=== PATIENT | female | born 1965 | race Caucasian/White ===

== ENCOUNTER 2019-12-28 10:49 | Day surgery (SDC) | payer BC ==
[~2019-12-28 10:49] MED LIST: Buffered Lidocaine 1% SYRIN* 1 ML/SYRINGE INTRADERM ONE; Lactated Ringers 1000 ML Bag* 1,000 ML IV SCH; Sodium Citrate/Citric Acid* 15 ML UDC PO ONE
[2019-12-28] MEDS ORDERED: Buffered Lidocaine 1% SYRIN* 1 ML/SYRINGE INTRADERM ONE (11:34)
[2019-12-28] MEDS ORDERED: Midazolam* 1 MG/ML 5 ML VIAL (5 MG) ONE (13:29)
[2019-12-28] MEDS ORDERED: KETAMINE HCL* 50 MG/ML 10 ML VIAL ONE (14:03)
[2019-12-28] MEDS ORDERED: Propofol* 10 MG/ML 20 ML BTL ONE (14:25)
[2019-12-28] MEDS ORDERED: Glycopyrrolate IV* 0.2 MG/ML 1 ML VIAL ONE (14:25)
[2019-12-28] MEDS ORDERED: Lidocaine 2% PF * 5 ML VIAL ONE (14:25)
[2019-12-28] MEDS ORDERED: Ondansetron INJ* 2 MG/ML VIAL ONE (14:25)
[2019-12-28] MEDS ORDERED: Acetaminophen TAB* 325 MG PO PRN (14:37)
[2019-12-28 15:11] VITALS: BP 124/64
--- NOTE | 2019-12-29 15:59 | PRO ---
DATE: 12/28/19 [facility] REFERRING PHYSICIAN: Dr. Doreen Meraz. * PROCEDURE: Upper gastrointestinal endoscopy and CLOtest and antral biopsy for routine histology. INDICATION: This is a 54-year-old woman comes in for pre-bariatric assessment. She currently takes a baby aspirin and denies NSAIDs. She denies acid ingestion or heartburn. Informed consent was obtained with an opportunity for questions and special concerns. ENDOSCOPIST: Dr. Schaeffer. MEDICATIONS: Anesthesia per Dr. Moran. FINDINGS: She is a morbidly obese, middle-aged woman, in no overt distress. She was positioned left side down and moderate sedation induced by the anesthesiologist. EGD: Larynx - symmetric, limited views. Esophagus - easily entered and the mucosa is normal at the upper sphincter and in the upper and mid esophagus. There are some small erosions in the lower esophagus and then a small to medium hiatal hernia with an inflammatory nodule at 3 o'clock orientation. During the withdrawal phase, the nodule was biopsied. There were no Gordon's changes, and the erosions were fairly superficial. There was no fundic prolapse. Stomach - the fundus and upper body appear normal. In the distal body and antrum, there were numerous small erosions. A CLOtest was taken. 2 biopsies were taken. Duodenum - the pylorus, bulb, and second through fourth portions appeared normal. IMPRESSION: 1. Fcfy-qq-qvhippxm antral gastritis - likely related to the aspirin. She denies NSAID use. 2. Mlzwq-og-svgicy hiatal hernia. Mild distal erosive gastroesophageal reflux disease. 4. EG junction inflammatory nodule - biopsy pending. 5. Bariatric surgery status - she has a significant reflux pre-disposition with underreported symptoms. Addendum: Clotest negative - EG junction Bx benign squamous mucosa [id number]/[facility] #: [id number] [facility]
== END 2019-12-28 15:30 | disposition home or self-care (01) ==
LOC: OR 10:49
PROVIDERS: ATTEND Internal Medicine Gastroenterology
DX: Z01.818 Encounter for other preprocedural examination (principal); E66.9 Obesity, unspecified; Z68.43 Body mass index [BMI] 50.0-59.9, adult; K29.60 Other gastritis without bleeding; K44.9 Diaphragmatic hernia without obstruction or gangrene; K21.0 Gastro-esophageal reflux disease with esophagitis; G47.33 Obstructive sleep apnea (adult) (pediatric); K76.0 Fatty (change of) liver, not elsewhere classified; E03.9 Hypothyroidism, unspecified; E11.8 Type 2 diabetes mellitus with unspecified complications; I10 Essential (primary) hypertension; I08.0 Rheumatic disorders of both mitral and aortic valves; I71.2 Thoracic aortic aneurysm, without rupture; Z87.891 Personal history of nicotine dependence
CPT/HCPCS: 87077; 88305; J2250; J2405; J2704

== ENCOUNTER 2020-01-22 05:44 | Emergency (ER) | payer BC ==
--- OUTSIDE RECORDS SUMMARY | 2020-01-22 05:51 | XMS REPORT ---
:1965 Author Organization [facility] Care Team Providers Name Role Phone Isabelle Stewart Primary Care Physician Unavailable Allergies, Adverse Reactions, Alerts Allergy Code CodeSystem Reaction Severity Criticality Status Start Substance Date Moderate Medications Medication Medication Medication Start Stop Route Dose Status Fill Code CodeSystem Date Date Instructions aripiprazole 434646 RxNorm 2019- oral 10 mg active for 90 7-22 10-20 tablet day(s) venlafaxine 367347 RxNorm 2019- oral 225 mg completed for 90 1-24 07-15 tablet day(s) extended release 24hr aripiprazole 442415 RxNorm 2018- oral 10 mg completed for 30 3-26 07-21 tablet day(s) gabapentin 844535 RxNorm 2017-11 oral 100 mg active for 15 0-18 capsule day(s) venlafaxine 653195 RxNorm 2019- oral 225 mg 1 active Take 1 tablet 7-22 10-20 tablet once a day extended for 90 day(s) release 24hr once a day Problems Problem Name Code CodeSystem Alternate Alternate Start End Status Narrative Code CodeSystem Date Date Post-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 SNOMED-CT Active ic stress 4-10 disorder, unspecified Recurrent 72321933 SNOMED-CT Active depressive 3-22 disorder, current episode moderate Relevant diagnostic tests/laboratory data Narrative No Information Procedures Procedure Code CodeSystem Target Date of Status Service Device Device Device Name Site Procedure Delivery Code Name UID Location Office or [id number] SNOMED-CT () 2019-05-18 complete Mental other 7 d Health- outpatient [place] visit for [address] [place], management [place], of an [place], established [id number] patient, [id number] which requires at least 2 of these 3 walker components: An expanded problem focused history; An expanded problem focused examination; Medical decision making of [facility] Psychotherap [id number] SNOMED-CT () 2019-08-23 complete Mental y, 45 04 d Health- minutes with [place] patient [address], [id number] [id number] Psychotherap [id number] SNOMED-CT () 2019-06-29 complete Mental y, 45 04 d Health- minutes with [place] patient [address], [id number] [phone] Office or [id number] SNOMED-CT () 2019-07-23 complete Mental other 7 d Health- outpatient [place] visit for [address], established [id number] patient, [phone] which requires at least 2 of these 3 walker components: An expanded problem focused history; An expanded problem focused examination; Medical decision making of [facility] Psychotherap [id number] SNOMED-CT () 2019-05-21 complete Mental y, 45 04 d Health- minutes with [place] patient [address], [id number] [phone] Psychotherap [id number] SNOMED-CT () 2019-11-06 complete Mental y, 45 04 d Health- minutes with [place] patient [address], [id number] [phone] Psychotherap [id number] SNOMED-CT () 2019-03-29 complete Mental y, 45 04 d Health- minutes with [place] patient [address], [id number] [id number] Office or [id number] SNOMED-CT () 2019-11-30 complete Mental other 6 d Health- outpatient [place] visit for [address], [facility] [id number] patient, [phone] which requires at least 2 of these 3 walker components: A problem focused history; A problem focused examination; [place] medical decision making. Counselin Office or [id number] SNOMED-CT () 2019-09-28 complete Mental other 6 d Health- outpatient [place] visit for [address], established [id number] patient, [phone] which requires at least 2 of these 3 walker components: A problem focused history; A problem focused examination; [place] medical decision making. Counselin SNOMED-CT () 2019-02-26 complete Mental d Health- [address], [id number] [id number] Psychotherap [id number] SNOMED-CT () 2019-03-09 complete Mental y, 45 04 d Health- minutes with [place] patient [address], [id number] [phone] Office or [id number] SNOMED-CT () 2019-04-04 complete Mental other 7 d Health- outpatient [place] visit for [address], [facility], of an [place], established [id number] patient, [phone] which requires at least 2 of these 3 walker components: An expanded problem focused history; An expanded problem focused examination; Medical decision making of [place] Psychotherap [id number] SNOMED-CT () 2019-08-09 complete Mental y, 45 04 d Health- minutes with [place] patient [address], [id number] [phone] Psychotherap [id number] SNOMED-CT () 2019-09-06 complete Mental y, 45 04 d Health- minutes with [place] patient [address], [id number] [phone] Psychotherap [id number] SNOMED-CT () 2019-12-19 complete Mental y, 45 04 d Health- minutes with [place] patient [address], [id number] [id number] Psychotherap [id number] SNOMED-CT () 2019-10-01 complete Mental y, 45 04 d Health- minutes with [place] patient [address], [id number] [phone] Psychotherap [id number] SNOMED-CT () 2019-12-05 complete Mental y, 45 04 d Health- minutes with [place] patient [address], [id number] [phone] Encounters/Encounter Diagnoses Encounter Name Encounter Diagnosis Diagnosis Diagnosis Date of Service Code Code Name CodeSystem Diagnosis Delivery Location Psychotherapy - [id number] Recurrent SNOMED-CT 2019-12-19 Behavioral Individual 30 depressive Health min disorder, Clinic [address] [place] [address], [id number] Vital Signs No Information Social History Element Description Description Start End Code CodeSystem AdditionalInfo Date Date SexAssignedAtBirth Female F AdministrativeGender 08-13 Hospital Discharge Instructions Reason For Referral Medical Equipment FDA Assessments
--- OUTSIDE RECORDS SUMMARY | 2020-01-22 05:51 | XMS REPORT ---
:1965 Author Organization [facility] Care Team Providers Name Role Phone Isabelle Stewart Primary Care Physician Unavailable Allergies, Adverse Reactions, Alerts Allergy Code CodeSystem Reaction Severity Criticality Status Start Substance Date Moderate Medications Medication Medication Medication Start Stop Route Dose Status Fill Code CodeSystem Date Date Instructions aripiprazole 639021 RxNorm 2019- oral 10 mg active for 90 7-22 10-20 tablet day(s) aripiprazole 582979 RxNorm 2019- oral 10 mg completed for 30 3-26 07-21 tablet day(s) gabapentin 200828 RxNorm 2017-11 oral 100 mg active for 15 0-18 capsule day(s) venlafaxine 070507 RxNorm 2019- oral 225 mg completed for 90 1-24 07-15 tablet day(s) extended release 24hr venlafaxine 053888 RxNorm 2019- oral 225 mg 1 active Take 1 tablet 7-22 10-20 tablet once a day extended for 90 day(s) release 24hr once a day Problems Problem Name Code CodeSystem Alternate Alternate Start End Status Narrative Code CodeSystem Date Date Post-traumat 37139806 SNOMED-CT Active ic stress 4-10 disorder, unspecified Recurrent 38908698 SNOMED-CT Active depressive 3-22 disorder, current episode moderate Relevant diagnostic tests/laboratory data Narrative No Information Procedures Procedure Code CodeSystem Target Date of Status Service Device Device Device Name Site Procedure Delivery Code Name UID Location Psychotherap [id number] SNOMED-CT () 2019-03-09 complete Mental y, 45 04 d Health- minutes with [address], [id number] [phone] Psychotherap [id number] SNOMED-CT () 2019-03-29 complete Mental y, 45 04 d Health- minutes with [address], [id number] Psychotherap [id number] SNOMED-CT () 2019-08-09 complete Mental y, 45 04 d Health- minutes with [place] patient [address], [id number] [phone] Psychotherap [id number] SNOMED-CT () 2019-08-23 complete Mental y, 45 04 d Health- minutes with [place] patient [address], [id number] [phone] Psychotherap 532781 SNOMED-CT () 2019-09-06 complete Mental y, 45 04 d Health- minutes with [place] patient [address], [id number] [phone] Psychotherap [id number] SNOMED-CT () 2019-10-01 complete Mental y, 45 04 d Health- minutes with [place] patient [address], [id number] [phone] Psychotherap 520442 SNOMED-CT () 2019-05-21 complete Mental y, 45 04 d Health- minutes with [place] patient [address], [id number] [phone] Psychotherap 368105 SNOMED-CT () 2019-06-29 complete Mental y, 45 04 d Health- minutes with [place] patient [address], [id number] [id number] Psychotherap 800894 SNOMED-CT () 2019-11-06 complete Mental y, 45 04 d Health- minutes with [place] patient [address], [id number] [phone] Office or [id number] SNOMED-CT () 2019-07-23 complete Mental other 7 d Health- outpatient [place] visit for [address], [facility], established [id number] patient, [phone] which requires at least 2 of these 3 walker components: An expanded problem focused history; An expanded problem focused examination; Medical decision making of [place] Office or 218502 SNOMED-CT () 2019-04-04 complete Mental other 7 d Health- outpatient [place] visit for [address], established [id number] patient, [phone] which requires at least 2 of these 3 walker components: An expanded problem focused history; An expanded problem focused examination; Medical decision making of [facility] Office or 977131 SNOMED-CT () 2019-05-18 complete Mental other 7 d Health- outpatient [place] visit for [address], established [id number] patient, [phone] which requires at least 2 of these 3 walker components: An expanded problem focused history; An expanded problem focused examination; Medical decision making of [facility] or [id number] SNOMED-CT () 2019-09-28 complete Mental other 6 d Health- outpatient [place] visit for [address], [facility] [id number] patient, [phone] which requires at least 2 of these 3 walker components: A problem focused history; A problem focused examination; [place] medical decision making. Counselin Office or [id number] SNOMED-CT () 2019-11-30 complete Mental other 6 d Health- outpatient [place] visit for [address], [facility] [phone] patient, [phone] which requires at least 2 of these 3 walker components: A problem focused history; A problem focused examination; [place] medical decision making. Counselin SNOMED-CT () 2019-02-26 complete Mental d Health- [place], [id number] [phone] Encounters/Encounter Diagnoses Encounter Name Encounter Diagnosis Diagnosis Diagnosis Date of Service Code Code Name CodeSystem Diagnosis Delivery Location - 10758 [id number] Recurrent SNOMED-CT 2019-11-30 Behavioral Established depressive Health patient 10 disorder, Clinic [address] [facility], [place], [place], [id number] Vital Signs No Information Social History Element Description Description Start End Code CodeSystem AdditionalInfo Date Date SexAssignedAtBirth Female 1965-0 F AdministrativeGender 9-16 Hospital Discharge Instructions Reason For Referral Medical Equipment FDA Assessments
[2020-01-22] MEDS ORDERED: Albuterol/Ipratropium NEB.SOL* Albuterol 2.5 MG/Ipratropium 0.5 MG 3 ML INH ONE ×2 (06:10→07:22)
--- NOTE | 2020-01-22 06:13 | ED ---
Respiratory - HPI Summary HPI Summary: Patient is a 54-year-old female who presents emergency department for productive cough, wheeze and chest pressure times one week. Patient notes history of asthma, obesity, CHF, thoracic aneurysm, HTN. Patient notes she's been using an albuterol inhaler at home without improvement. Symptoms are moderate in severity. No current modifying factors. - History of Current Complaint Chief Complaint: EDUpperRespComplaint Stated Complaint: COUGH PER PT Time Seen by Provider: 01/22/20 05:58 Hx Obtained From: Patient Pain Intensity: 5 - Allergy/Home Medications Allergies/Adverse Reactions: Allergies Allergy/AdvReac Type Severity Reaction Status Date / Time Latex, Natural Rubber Allergy Intermediate Rash And Verified 01/22/20 05:47 Itching Sulfa (Sulfonamide Allergy Intermediate Difficulty Verified 01/22/20 05:47 Antibiotics) Breathing nickel Allergy Mild Rash Verified 01/22/20 05:47 peanut Allergy Mild Itching Verified 01/22/20 05:47 banana Allergy See Comment Verified 01/22/20 05:47 Egg Derived Allergy See Comment Verified 01/22/20 05:47 Home Medications: Home Medications Potassium Chlor TAB* [Klor-Con M20 ER TAB*] 20 meq PO DAILY 01/10/13 [History Confirmed 01/22/20] Spironolactone [Aldactone] 25 mg PO DAILY 03/29/15 [History Confirmed 01/22/20] ARIPiprazole TAB* [Abilify TAB*] 10 mg PO DAILY 11/14/19 [History Confirmed ] Aspirin 81 mg CHEW TAB* [Aspirin Low Dose TAB*] 81 mg PO DAILY 11/14/19 [ History Confirmed 01/22/20] Fexofenadine (NF) [Jenna 180 (NF)] 180 mg PO DAILY PRN 11/14/19 [History Confirmed 01/22/20] Gabapentin CAP(*) [Neurontin 100 mg CAP(*)] 100 - 200 mg PO TID PRN 11/14/19 [ History Confirmed 01/22/20] Levothyroxine TAB* [Synthroid TAB*] 50 mcg PO DAILY 11/14/19 [History Confirmed 01/22/20] Mometasone NASAL (NF) [Nasonex (NF)] 50 mcg BOTH NARES DAILY PRN 11/14/19 [ History Confirmed 01/22/20] Venlafaxine EXT RELEASE CAP* [Effexor Xr CAP*] 75 mg PO DAILY 11/14/19 [History Confirmed 01/22/20] Acetaminophen [Tylenol Extra Strength] 1,000 mg PO TID PRN 01/22/20 [History Confirmed 01/22/20] Albuterol/Ipratropium NEB.DUNCAN* [Duoneb (Albuterol 2.5 MG/Ipratropium 0.5 MG)] 1 neb INH Q6H PRN #30 neb.duncan 01/22/20 [Rx] DOXYcycline CAP(*) [DOXYcycline 100MG CAP(*)] 100 mg PO BID #20 cap 01/22/20 [Rx ] Metoprolol Succinate [Toprol Xl] 25 mg PO BID 01/22/20 [History Confirmed ] Venlafaxine ER (NF) [Effexor ER (NF)] 150 mg PO DAILY 01/22/20 [History Confirmed 01/22/20] predniSONE 50 mg TAB [Deltasone 50 mg TAB] 50 mg PO DAILY #4 tab 01/22/20 [Rx] PMH/Surg Hx/FS Hx/Imm Hx Previously Healthy: Yes Endocrine/Hematology History: Reports: Hx Thyroid Disease - hypothyroidism, Hx Anemia - 30 years ago Denies: Hx Bone Marrow Disease, Hx Diabetes, Hx Sickle Cell Disease Cardiovascular History: Reports: Hx Angina, Hx Hypertension, Hx Valvular Heart Disease - bicuspid aortic vavle (mild-mod), Other Cardiovascular Problems/ Disorders - THORACIC AORTIC ANUERISM Denies: Hx Cardiomegaly, Hx Congestive Heart Failure, Hx Coronary Artery Disease, Hx Pacemaker/ICD, Hx Peripheral Vascular Disease, Hx Rheumatic Fever Respiratory History: Reports: Hx Asthma, Hx Seasonal Allergies - multiple, Hx Sleep Apnea - can't tolerate cpap, Other Respiratory Problems/Disorders - age 8 pulmonic stenosis- valve valvotomy Denies: Hx Chronic Obstructive Pulmonary Disease (COPD), Hx Pulmonary Edema, Hx Pulmonary Embolism GI History: Reports: Hx Gall Bladder Disease - s/p lap jose, Hx Gastroesophageal Reflux Disease, Hx Hiatal Hernia, Hx Irritable Bowel Denies: Hx Cirrhosis, Hx Crohn's Disease, Hx Jaundice, Hx Ulcer Comment Only: Other GI Disorders - ibs History: Denies: Hx Kidney Infection, Hx Kidney Stones, Other Problems/Disorders Musculoskeletal History: Reports: Hx Arthritis - osteoarthritis, Hx Fibromyalgia , Hx Orthopedic Injury - bilateral knees Denies: Hx Bursitis, Hx Tendonitis, Other Musculoskeletal History Sensory History: Reports: Hx Contacts or Glasses Denies: Hx Cataracts, Hx Glaucoma, Hx Hearing Aid Opthamlomology History: Reports: Hx Contacts or Glasses Denies: Hx Cataracts, Hx Glaucoma Neurological History: Reports: Hx Migraine - has had a few, but not within the past 5 years Denies: Hx Headaches, Hx Nerve Disease, Hx Seizures, Other Neuro Impairments/ Disorders Psychiatric History: Reports: Hx Anxiety, Hx Depression, Hx Post Traumatic Stress Disorder - Cancer History Hx Chemotherapy: No Hx Radiation Therapy: No - Surgical History Surgery Procedure, Year, and Place: Cholecystectomy, Open Heart-valve surgery 1972, Tubal Ligation, Hysterectomy Hx Anesthesia Reactions: Yes Infectious Disease History: No Infectious Disease History: Denies: Hx Hepatitis, Traveled Outside the [place] in Last 30 Days - Family History Known Family History: Positive: Cardiac Disease - father, Diabetes - father, Non -Contributory Family History: Mother with hypothyroidism - Social History Occupation: Employed Full-time Lives: With Family Alcohol Use: Rare Substance Use Type: Reports: None Smoking Status (MU): Never Smoked Tobacco Have You Smoked in the Last Year: No Review of Systems Constitutional: Negative Negative: Fever, Chills Eyes: Negative Positive: Nasal Discharge Positive: Chest Pain Positive: Shortness Of Breath, Cough Gastrointestinal: Negative Musculoskeletal: Negative Skin: Negative Neurological/Mental Status: Negative All Other Systems Reviewed And Are Negative: Yes Physical Exam Vital Signs On Initial Exam: Initial Vitals Temp Pulse Resp BP Pulse Ox 97.0 F 92 18 142/96 93 01/22/20 05:45 01/22/20 05:45 01/22/20 05:45 01/22/20 05:45 01/22/20 05:45 Procedures - Sedation Patient Received Moderate/Deep Sedation with Procedure: No Diagnostics - Vital Signs Vital Signs Temp Pulse Resp BP Pulse Ox 01/22/20 05:45 97.0 F 92 18 142/96 93 - Laboratory Result Diagrams: 01/22/20 06:41 01/22/20 06:41 Lab Statement: Any lab studies that have been ordered have been reviewed, and results considered in the medical decision making process. Disposition - Course Course Of Treatment: Patient presenting with productive cough and wheeze. She is afebrile. Oxygen saturations 90-93% room air. Nonrespiratory distress. Patient started breathing treatment. ECG done at 0633 shows a sinus rhythm of 83 bpm, normal axis, no STEMI, similar to prior tracing. Labs unremarkable. Chest x-ray reviewed with Dr. Hemphill and concerned for early infiltrate which fits patient clinically. After two breathing treatments and pred. pt. feeling much better. Ambulated and pulse ox stayed 96%. Will dc home with duoneb, pred, and doxy. Social service was able to set pt. up with neb machine and [employer] to deliver to pt.'s house. To fu with pcp in 2-3 days. WIll return to er if sxs change or worsen. pt. understands and agrees with plan. - Differential Dx - Cardiopulmonary Differential Diagnoses - Cardiopulmonary: Asthma, Bronchitis, Influenza, Lower Resp Infection - Diagnoses Provider Diagnoses: Pneumonia Discharge ED - Sign-Out/Discharge Documenting (check all that apply): Patient Departure - Discharge Plan Condition: Improved Disposition: HOME Prescriptions: Albuterol/Ipratropium NEB.DUNCAN* [Duoneb (Albuterol 2.5 MG/Ipratropium 0.5 MG)] 1 neb INH Q6H PRN #30 neb.duncan PRN Reason: Shortness Of Breath DOXYcycline CAP(*) [DOXYcycline 100MG CAP(*)] 100 mg PO BID #20 cap predniSONE 50 mg TAB [Deltasone 50 mg TAB] 50 mg PO DAILY #4 tab Patient Education Materials: Community Acquired Pneumonia (ED) Forms: *Work Release Referrals: Doreen Meraz MD [Primary Care Provider] - Additional Instructions: Please follow up with PCP in 2-3 days for recheck Continue home medications as directed New medications as directed Return to ER if symptoms change or worsen - Billing Disposition and Condition Condition: IMPROVED Disposition: Home
[2020-01-22 06:53] LABS: ABS Eosinophils 0.5 10^3/ul (0-0.6); ABS Lymphocytes 0.9 10^3/ul (1.0-4.8); ABS Monocytes 0.7 10^3/ul (0-0.8); ABS Neutrophils 4.5 10^3/ul (1.5-7.7); Eosinophil % 8.2 %; Hematocrit 44 % (35-47); Hemoglobin 15.1 g/dL (12.0-16.0); Lymphocyte % 13.3 %; Mean Corpuscular HGB Conc 35 g/dL (31-36); Mean Corpuscular Hemoglobin 32 pg (27-31); Mean Corpuscular Volume 92 fL (80-97); Mean Platelet Volume 7.3 fL (7.4-10.4); Platelet Count 207 10^3/uL (150-450); Red Blood Count 4.76 10^6 /uL (3.70-4.87); Red Cell Distribution Width 14 % (10-15); White Blood Count 6.7 10^3/uL (3.5-10.8)
[2020-01-22 06:58] LABS: Influenza A Molecular Negative (Negative); Influenza B Molecular Negative (Negative)
[2020-01-22 07:11] LABS: Albumin 3.8 g/dL (3.2-5.2); Albumin/Globulin Ratio 1.3 (1-3); C Reactive Protein 22.72 mg/L (<8.01); EGFR African American 90.8 (>60); Total Bilirubin 0.5 mg/dL (0.2-1.0); Total Protein 6.8 g/dL (6.4-8.9)
[2020-01-22 07:25] LABS: Potassium 4.1 mmol/L (3.5-5.0)
[2020-01-22 08:26] VITALS: BP 124/89
== END 2020-01-22 08:25 | disposition home or self-care (01) ==
LOC: ED 05:44
DX: J18.9 Pneumonia, unspecified organism (principal); E03.9 Hypothyroidism, unspecified; I10 Essential (primary) hypertension; I71.2 Thoracic aortic aneurysm, without rupture; J45.909 Unspecified asthma, uncomplicated; K21.9 Gastro-esophageal reflux disease without esophagitis; F41.9 Anxiety disorder, unspecified; F32.9 Major depressive disorder, single episode, unspecified; Z79.82 Long term (current) use of aspirin; Z79.899 Other long term (current) drug therapy; Z91.012 Allergy to eggs; Z91.040 Latex allergy status; Z91.010 Allergy to peanuts; Z88.2 Allergy status to sulfonamides; Z91.018 Allergy to other foods; Z91.048 Other nonmedicinal substance allergy status
CPT/HCPCS: 36415; 71046; 80053; 84484; 85025; 86140; 99283; A9270-GY; J7512

== ENCOUNTER 2020-02-12 20:05 | Emergency (ER) | payer BC ==
--- OUTSIDE RECORDS SUMMARY | 2020-02-12 20:11 | XMS REPORT | Continuity of Care Document ---
:1965 External Reference #:[id number] Author Name Brian Rey NP (transmitted by agent of provider Gracie Schwartz) Address [address], [place] [address] Care Team Providers Name Role Phone Yoni Vivar MD - Family Medicine Care Team Information Beverage Sales Consultant Doreen Meraz M.D. - Family Medicine Care Team Information Beverage Sales Consultant [phone] Problems Active Problems Provider Date Pulmonary valve disorder Tonny Zelaya M.D. Onset: 01/19/2013 Aortic valve disorder Tonny Zelaya M.D. Onset: 01/19/2013 Pure hypercholesterolemia Tonny Zelaya M.D. Onset: 01/19/2013 Palpitations Tonny Zelaya M.D. Onset: 01/19/2013 Chest pain Tonny Zelaya M.D. Onset: 07/12/2013 Aneurysm of thoracic aorta Tonny Zelaya M.D. Onset: 07/12/2013 Difficulty breathing Tonny Zelaya M.D. Onset: 09/12/2013 Mitral valve disorder Tonny Zelaya M.D. Onset: 09/12/2013 Essential hypertension [facility]am Onset: 03/05/2014 Obstructive sleep apnea syndrome Tonny Zelaya M.D. Onset: 2014 Type 2 diabetes mellitus Brian Rey NP Onset: 09/27/2019 Social History Type Date Description Comments Sex Unknown Tobacco Use Start: Unknown End: discontinued 2005. Unknown ETOH Use occ. drink, 3-4 /month ETOH Use Occasionally consumes alcohol ETOH Use Occasionally consumes liquor Tobacco Use Start: Unknown End: Patient is a former smoked briefly for Unknown smoker 2 weeks Recreational Drug Use Never Used Drugs Smoking Status Reviewed: 01/25/20 Patient is a former smoked briefly for smoker 2 weeks Exercise Type/Frequency Does not exercise currently Exercise Type/Frequency Exercises sporadically Allergies, Adverse Reactions, Alerts Active Allergies Reaction Severity Comments Date Sulfa hives 02/05/2004 Eggs 11/27/2007 peanuts pruritis 06/26/2008 Latex 08/04/2011 Nickel 08/04/2011 Soybean Oil 03/05/2015 Bananas 02/01/2018 Medications Active Medications SIG Qnty Indications Ordering Date Provider Prednisone 2 tab by mouth QS J18.9 Brian Rey NP 01/25/2020 20mg Tablets every day x 2, 1 1/2 tabs x 2 days, then 1 tab daily for 2 days, then 1/2 tab daily for 2 days Amoxicillin/Clavulanat take one tablet 20tabs J18.9 Brian Rey NP 2019 e Potassium q12 hours for 10 875-125mg days Tablets Cheratussin ac 5-10ml every 6 200ml Brian Rey NP 01/25/2020 hours as needed 100-10mg/5ML Solution cough. Venlafaxine HCL ER 1 tab by mouth Unknown 06/22/2017 225MG Tbab daily Spironolactone 2 tabs by mouth 180tabs oTnny Ulloa 09/13/2014 25mg every day Gini Zelaya Tablets Cardizem CD 1 tab by mouth 90caps Tonny Ulloa 2014 120mg Caps ER daily Gini Zelaya 24HR Jenna Allergy 1 by mouth every 90tabs Doreen Meraz MD 09/10/2013 180mg day as needed Tablets Toprol XL 2 by mouth every 180tabs Tonny Ulloa 07/03/2013 25mg Tablets ER day Gini Zelaya 24HR Potassium Chloride ER 1 by mouth every 90tabs Tonny Ulloa 05/02/2013 day Gini Zelaya 20Meq Tablets ER Doxycycline Hyclate TK 1 C PO bid Unknown 100mg Capsules Ipratropium Inhale Contents Unknown Ladson/Albuterol Of 1 Vial In Sulfate Nebulizer Every 0.5-2.5(3)mg/3ML 6 Hours as Solution Needed For Shortness Of Breath Acetaminophen Extra 2 tabs by mouth Unknown Strength every 8 hours as 500mg Tablets needed for pain or fever Gabapentin 1to 2 tabs by Unknown 100mg Capsules mouth three times a day as needed Levothyroxine Sodium 1 by mouth every Unknown day 50mcg Tablets Ibuprofen 2 po prn Unknown 200mg Tablets Aripiprazole 1 po qd Unknown 10mg Tablets Aspirin Ec 1 by mouth every 90tabs Unknown 81mg Tablets day DR Rodriguez HFA 2 puffs up to 15gm Brian Candido, [employer] 45mcg/Act four times a day Aerosol as needed Nasonex 2 sprays in each 17gm Megha 50mcg/Act nostril once Cotton, M.D. Suspension daily Immunizations Description No Information Available Vital Signs Date Vital Result Comment 01/25/2020 2:27pm Height 64 inches 5'4" Weight 321.00 lb Heart Rate 76 /min BP Systolic 128 mmHg BP Diastolic 76 mmHg Body Temperature 98.2 F O2 % BldC Oximetry 93 % BMI (Body Mass Index) 55.1 kg/m2 11/12/2019 1:04pm Height 64 inches 5'4" Weight 312.12 lb Heart Rate 64 /min BP Systolic 128 mmHg Lue BP Diastolic 86 mmHg Lue Respiratory Rate 18 /min O2 % BldC Oximetry 98 % BMI (Body Mass Index) 53.6 kg/m2 Results Test Acquired Date Facility Test Result H/L Range Note Influenza A & B 01/22/2020 [facility] Flu AB (SEE NOTE) [address] [place] [address] [phone] Influenza A Molecular Negative Negative Influenza B Molecular Negative Negative 2 CBC Auto 01/22/2020 [facility] White Blood 6.7 10^3/uL Normal 3.5-10.[address] [place] [address] [phone] Red Blood Count 4.76 10^6/uL Normal 3.70-4.87 Hemoglobin 15.1 g/dL Normal 12.0-16.0 Hematocrit 44 % Normal 35-47 Mean Corpuscular Volume 92 fL Normal 80-97 Mean Corpuscular Hemoglobin 32 pg High 27-31 Mean Corpuscular HGB Conc 35 g/dL Normal 31-36 Red Cell Distribution Width 14 % Normal 10-15 Platelet Count 207 10^3/uL Normal 150-450 Mean Platelet Volume 7.3 fL Low 7.4-10.4 Abs Neutrophils 4.5 10^3/uL Normal 1.5-7.7 Abs Lymphocytes 0.9 10^3/uL Low 1.0-4.8 Abs Monocytes 0.7 10^3/uL Normal 0-0.8 Abs Eosinophils 0.5 10^3/uL Normal 0-0.6 Abs Basophils 0.0 10^3/uL Normal 0-0.2 Abs Nucleated RBC 0.0 10^3/uL Granulocyte % 67.1 % Lymphocyte % 13.3 % Monocyte % 10.8 % Eosinophil % 8.2 % Basophil % 0.6 % Nucleated Red Blood Cells % 0.0 Laboratory test 01/22/2020 [facility] Troponin-I 0.00 <0.03 [address] (TnI) ng/[place] [address] [phone] Comp Metabolic 01/22/2020 [facility] Sodium 136 Normal 135- [address] mmol/[place] [address] [phone] Chloride 102 mmol/L Normal 101-111 Co2 Carbon Dioxide 29 mmol/L Normal 22-32 Glucose 170 mg/dL High 70-100 Blood Urea Nitrogen 16 mg/dL Normal 6-24 Creatinine 0.80 mg/dL Normal 0.51-0.95 BUN/Creatinine Ratio 20.0 Normal 8-20 Calcium 9.0 mg/dL Normal 8.6-10.3 Total Protein 6.8 g/dL Normal 6.4-8.9 Albumin 3.8 g/dL Normal 3.2-5.2 Globulin 3.0 g/dL Normal 2-4 Albumin/Globulin Ratio 1.3 Normal 1-3 Total Bilirubin 0.50 mg/dL Normal 0.2-1.0 Alkaline Phosphatase 78 U/L Normal 34-104 Alt 19 U/L Normal 7-52 Egfr Non- 75.0 >60 Egfr 90.8 >60 4 Potassium 4.1 mmol/L Normal 3.5-5.0 Anion Gap 5 mmol/L Normal 2-11 Ast 15 U/L Normal 13-39 Laboratory test 01/22/2020 [facility] C Reactive 22.72 mg/L High <8.[address] [place] [address] [phone] Surgical 12/28/2019 [facility] Surgical SEE RESULT [address] [place] [address] [phone] PDFReport SEE IMAGE Laboratory test 12/28/2019 [facility] Clotest SEE RESULT [address] [place] [address] [phone] Laboratory test 11/12/2019 [facility] TSH (Thyroid 5.18 Normal 0.34- finding [address] Stim Horm) mcIU/mL 5.60 [place] [address] [phone] CBC No Diff 11/12/2019 [facility] White Blood 11.0 High 3.5-1 DRIVE Count 10^3/uL 0.8 [place] [address] [phone] Red Blood Count 5.00 10^6/uL High 3.70-4.87 Hemoglobin 15.5 g/dL Normal 12.0-16.0 Hematocrit 45 % Normal 35-47 Mean Corpuscular Volume 90 fL Normal 80-97 Mean Corpuscular Hemoglobin 31 pg Normal 27-31 Mean Corpuscular HGB Conc 34 g/dL Normal 31-36 Red Cell Distribution Width 13 % Normal 10-15 Platelet Count 288 10^3/uL Normal 150-450 Mean Platelet Volume 7.6 fL Normal 7.4-10.4 Comp Metabolic 11/12/2019 [facility] Sodium 139 mmol/L Normal 135-[address] [place] [address] [phone] Potassium 4.3 mmol/L Normal 3.5-5.0 Chloride 102 mmol/L Normal 101-111 Co2 Carbon Dioxide 28 mmol/L Normal 22-32 Anion Gap 9 mmol/L Normal 2-11 Glucose 89 mg/dL Normal 70-100 Blood Urea Nitrogen 15 mg/dL Normal 6-24 Creatinine 0.80 mg/dL Normal 0.51-0.95 BUN/Creatinine Ratio 18.8 Normal 8-20 Calcium 9.4 mg/dL Normal 8.6-10.3 Total Protein 6.8 g/dL Normal 6.4-8.9 Albumin 3.9 g/dL Normal 3.2-5.2 Globulin 2.9 g/dL Normal 2-4 Albumin/Globulin Ratio 1.3 Normal 1-3 Total Bilirubin 0.50 mg/dL Normal 0.2-1.0 Alkaline Phosphatase 83 U/L Normal 34-104 Alt 17 U/L Normal 7-52 Ast 13 U/L Normal 13-39 Egfr Non- 75.0 >60 Egfr 90.8 >60 7 1 Suboptimal collection technique may reduce sensitivity of test. Refer to the [facility] Test Catalog for collection information: [email or web address] As with all diagnostic procedures, the laboratory results obtained should be used in conjunction with other clinical information available to the physician, including confirmation by another method, as applicable. 2 Application Systems Administrator: [id number] 3 Troponin-I testing on Plasma Separator Tubes (PST) has a known false positive rate of 0.20-0.40%. All positive troponins reflex immediately to secondary confirmatory testing. Using the MicroblrI 800 Access Immunoassay systems, the 99th percentile upper reference limit was demonstrated to be < 0.03 ng/mL. 4 Because ethnic data is not always readily available, this report includes an eGFR for both -Americans and non- Americans. The National Kidney Disease Education Program (NKDEP) does not endorse the use of the MDRD equation for patients that are not between the ages of 18 and 70, are , have extremes of body size, muscle mass, or nutritional status, or are non- or non-. According to the National Kidney Foundation, irrespective of diagnosis, the stage of the disease is based on the level of kidney function: Stage Description GFR(mL/min/1.73 m(2)) 1 Kidney damage with normal or decreased GFR 90 2 Kidney damage with mild decrease in GFR 60-89 3 Moderate decrease in GFR 30-59 4 Severe decrease in GFR 15-29 5 Kidney failure <15 (or dialysis) 5 SEE RESULT BELOW Name: KATELIN TRIPP : [address]: Oneil Schaeffer MD Acct: [id number] Unit: [id number] AGE: 54 Location: [place] Re12/28/19 SEX: F [place] [facility] [place]C: [id number] DARIO: 12/28/19- SUBM DR: Oneil Schaeffer MD REQ: [id number] RECD: 12/28/191445 STATUS: SONIA TRIMBLE DR: Jimy Turcios MD _ ORDERED: LEVEL 4/2 FINAL DIAGNOSIS 1. Stomach, antrum, biopsy: -- Antral and body-type gastric mucosa with mild chronic gastritis. -- No evidence of Helicobacter organisms. 2. Gastroesophageal junction, biopsy: -- Benign squamous mucosa with moderate erosive changes. -- No columnar component present for evaluation. CLINICAL HISTORY Pre bariatric POST-OPERATIVE DIAGNOSIS EGD: larynx - symmetric; esophagus - normal; esophagogastric 37-38 cm; sliding small to medium hiatal hernia; nodule; erosion; stomach - scattered exudate; duodenum - normal x 35 cm; conclusions: gastritis; hiatal hernia; esophagogastric nodule GROSS DESCRIPTION 1. The specimen is received in formalin labeled, Biopsy Gastric Antrum, and consists of two pang-pink irregular to polypoid soft tissue fragments measuring 0.5 x 0.4 x 0.2 cm and 0.6 x 0.3 x 0.3 cm, which are entirely submitted in one cassette. CONTINUED ON NEXT PAGE DEPARTMENT OF PATHOLOGY, [address] [place] [address] Rishi Gates M.D. Director [facility] # [id number] 2. The specimen is received in formalin labeled, Biopsy EG Junction, and consists of three pang-pink irregular to polypoid soft tissue fragments ranging from 0.2 x 0.1 x 0.1 cm to 0.5 x 0.3 x 0.3 cm, which are entirely submitted in one cassette. Signed by and Reported on: Sheila Guaman MD 12/31/19 1100 END OF REPORT DEPARTMENT OF PATHOLOGY, [address] [place] [address] Rishi Gates M.D. Director [facility] # [id number] 6 SEE RESULT BELOW Name: KATELIN TRIPP : [address]: Oneil Schaeffer MD Acct: [id number] Unit: [id number] AGE: 54 Location: OR Re12/28/19 SEX: F Status: DEP SDC SPEC: [id number] DARIO: 12/28/19-[address] [facility] [address]: Oneil Schaeffer MD REQ: [id number] RECD: 12/28/19-150 STATUS: PO TRIMBLE DR: Doreen Meraz MD _ SOURCE: GAS ANTRUM SPDESC: ORDERED: Clotest Procedure Result Reported Site Clotest Final 12/29/19- 0840 ML Clotest Negative * ML - Main Lab . END OF REPORT DEPARTMENT OF PATHOLOGY, [address] [place] [address] Rishi Gates M.D. Director [facility] # [id number] 7 Because ethnic data is not always readily available, this report includes an eGFR for both -Americans and non- Americans. The National Kidney Disease Education Program (NKDEP) does not endorse the use of the MDRD equation for patients that are not between the ages of 18 and 70, are , have extremes of body size, muscle mass, or nutritional status, or are non- or non-. According to the National Kidney Foundation, irrespective of diagnosis, the stage of the disease is based on the level of kidney function: Stage Description GFR(mL/min/1.73 m(2)) 1 Kidney damage with normal or decreased GFR 90 2 Kidney damage with mild decrease in GFR 60-89 3 Moderate decrease in GFR 30-59 4 Severe decrease in GFR 15-29 5 Kidney failure <15 (or dialysis) Procedures Date Code Description Status 12/28/2019 62380 Endoscopy Upper GI Biopsy Completed 03/17/2010 02112049 Colonoscopy Completed 11/24/2004 [id number] Colonoscopy Completed Medical Devices Description No Information Available Encounters Type Date Location Provider Dx Diagnosis Office Visit 11/12/2019 [facility] Gastroenterology Tati Z01.818 Encounter for other 1:00p Sheila preprocedural DARLYN Cano examination K21.9 Gastro-esophageal reflux disease without esophagitis Z68.43 Body mass index (BMI) 50.0-59.9, adult Office Visit 09/27/2019 11:40a [facility] Internal Brian Rey, E03.9 Hypothyroidism, Medicine - [employer]OM[employer]ADER unspecified Ccmob Z68.43 Body mass index (BMI) 50.0-59.9, adult Assessments Date Code Description Provider 01/25/2020 J18.9 Pneumonia, unspecified organism Brian Rey NP 12/28/2019 K29.70 Gastritis, unspecified, without Oneil Schaeffer MD bleeding 12/28/2019 K44.9 Diaphragmatic hernia without Oneil Schaeffer MD obstruction or gangrene 12/28/2019 K22.8 Other specified diseases of esophagus Oneil Schaeffer MD 12/28/2019 Z01.818 Encounter for other preprocedural Oneil Schaeffer MD examination 11/12/2019 Z01.818 Encounter for other preprocedural Tati Cano NP examination 11/12/2019 K21.9 Gastro-esophageal reflux disease Tati Cano NP without esophagitis 11/12/2019 Z68.43 Body mass index (BMI) 50.0-59.9, adult Tati Cano NP 09/27/2019 E03.9 Hypothyroidism, unspecified Brian Rey NP 09/27/2019 Z68.43 Body mass index (BMI) 50.0-59.9, adult Brian Rey NP Plan of Treatment Future Appointment(s):02/04/2020 10:10 am - Tati Cano NP at [facility] [id number]/16/2020 11:20 am - Tonny [facility] M.D. at [facility]01/25/2020 - Brian Rey, NPJ18.9 Pneumonia, unspecified organismNew Medication:Prednisone 20 mg - 2 tab by mouth every day x 2, 1 1/2 tabs x 2 days , then 1 tab daily for 2 days, then 1/2 tab daily for 2 daysAmoxicillin/ Clavulanate Potassium 875-125 mg - take one tablet q12 hours for 10 daysComments :Continue taking the doxycycline twice daily until it is gone.Start taking the Augmentin in addition to that twice daily/ I have extended the prednisone and will slowly decrease the dose.If needed, use the nebulizer up to 4 times daily. Use the cough medication at night to help with sleep. Have the chest xray done in 4 weeks. Functional Status Description No Information Available Mental Status Description No Information Available Referrals Description No Information Available
--- OUTSIDE RECORDS SUMMARY | 2020-02-12 20:11 | XMS REPORT | Continuity of Care Document ---
:1965 External Reference #:[id number] Author Name Kely Garibay N.P. (transmitted by agent of provider Nichole Evans) Address [address] [facility], [place] [address] Care Team Providers Name Role Phone Yoni Vivar MD - Family Medicine Care Team Information Erector Operator Doreen Meraz M.D. - Family Medicine Care Team Information Erector Operator Problems Active Problems Provider Date Pulmonary valve disorder Tonny Zelaya M.D. Onset: 01/19/2013 Aortic valve disorder Tonny Zelaya M.D. Onset: 01/19/2013 Pure hypercholesterolemia Tonny Zelaya M.D. Onset: 01/19/2013 Palpitations Tonny Zelaya M.D. Onset: 01/19/2013 Chest pain Tonny Zelaya M.D. Onset: 07/12/2013 Aneurysm of thoracic aorta Tonny Zelaya M.D. Onset: 07/12/2013 Difficulty breathing Tonny Zelaya M.D. Onset: 09/12/2013 Mitral valve disorder oTnny Zelaya M.D. Onset: 09/12/2013 Essential hypertension SI[facility]RA [...] Use Never Used Drugs Smoking Status Reviewed: 02/08/20 Patient is a former smoked briefly for smoker 2 weeks Exercise Type/Frequency Does not exercise currently Exercise Type/Frequency Exercises sporadically Allergies, Adverse Reactions, Alerts Active Allergies Reaction Severity Comments Date Sulfa hives 02/05/2004 Eggs 11/27/2007 peanuts pruritis 06/26/2008 Latex 08/04/2011 Nickel 08/04/2011 Soybean Oil 03/05/2015 Bananas 02/01/2018 Medications Active Medications SIG Qnty Indications Ordering Date Provider Valacyclovir HCL one by mouth 21tabs B02.9 Kely Garibay, 02/08/2020 1gm three times a N.P. Tablets day x 7 days Venlafaxine HCL ER 1 tab by mouth Unknown 06/22/2017 225MG Tbab daily Spironolactone 2 tabs by mouth 180tabs Tonny Ulloa 09/13/2014 25mg every day Gini Zelaya [...] 05/02/2013 day Gini Zelaya 20Meq Tablets ER Ipratropium Inhale Contents Unknown [place]/Albuterol Of 1 Vial In Sulfate Nebulizer Every 0.5-2.5(3)mg/3ML 6 Hours as Solution Needed For Shortness Of Breath Acetaminophen Extra 2 tabs by mouth Unknown Strength every 8 hours as 500mg Tablets needed for pain or fever Gabapentin 1to 2 tabs by Unknown 100mg Capsules mouth three times a day as needed Levothyroxine Sodium 1 by mouth every Unknown day 50mcg Tablets Aripiprazole 1 po qd Unknown 10mg Tablets Aspirin Ec 1 by mouth every 90tabs Unknown 81mg Tablets day DR Michael FRANKS 2 puffs up to 15gm Brian Rey NP 45mcg/Act four times a day Aerosol as needed Nasonex 2 sprays in each 17gm Megha 50mcg/Act nostril once Cotton MMarcianoD. Suspension daily History Medications Prednisone 2 tab by mouth QS J18.9 Brian Rey NP 01/25/2020 - 20mg Tablets every day x 2, 1 01/30/2020 1/2 tabs x 2 days, then 1 tab daily for 2 days, then 1/2 tab daily for 2 days Amoxicillin/Clavulana take one tablet 20tabs J18.9 Brian Rey NP 2019 - te Potassium q12 hours for 10 02/02/2020 875-125mg days Tablets Cheratussin ac 5-10ml every 6 200ml Brian Rey NP 01/25/2020 - hours as needed 01/29/2020 100-10mg/5ML Solution cough. Immunizations Description No Information Available Vital Signs Date Vital Result Comment 02/08/2020 4:08pm Height 64 inches 5'4" Weight 327.38 lb Heart Rate 85 /min BP Systolic Sitting 129 mmHg BP Diastolic Sitting 86 mmHg Body Temperature 97.9 F O2 % BldC Oximetry 95 % BMI (Body Mass Index) 56.2 kg/m2 01/25/2020 2:27pm Height 64 inches 5'4" Weight 321.00 lb Heart Rate 76 /min BP Systolic 128 mmHg BP Diastolic 76 mmHg Body Temperature 98.2 F O2 % BldC Oximetry 93 % BMI (Body Mass Index) 55.1 kg/m2 Results Test Acquired Date Facility Test Result H/L Range Note Influenza A & B 01/22/2020 [facility] Flu AB (SEE NOTE) [address] [place] [address] [phone] Influenza A Molecular Negative Negative Influenza B Molecular Negative Negative 2 CBC Auto 01/22/2020 [facility] White Blood 6.7 10^3/uL Normal 3.5-10.[address] [place] [address] [phone] Red Blood Count 4.76 10^6/uL Normal 3.70-4.87 [...] Blood Cells % 0.0 Laboratory test 01/22/2020 [facility] Troponin-I 0.00 <0.03 [address] (TnI) ng/mL [place], [place] [id number] [phone] Comp Metabolic 01/22/2020 [facility] Sodium 136 Normal 135- [address] mmol/L [place], [place] [address] [phone] Chloride 102 mmol/L Normal 101-111 Co2 Carbon [...] 15 U/L Normal 13-39 Laboratory test 01/22/2020 [facility] C Reactive 22.72 mg/L High <8.[address] [place] [address] [phone] Surgical 12/28/2019 [facility] Surgical SEE RESULT [address] [place] [address] [phone] PDFReport SEE IMAGE Laboratory test 12/28/2019 [facility] Clotest SEE RESULT [address] [place] [address] [phone] Laboratory test 11/12/2019 [facility] TSH (Thyroid 5.18 Normal 0.34- finding [address] Stim Horm) mcIU/mL 5.60 [place] [address] [phone] CBC No Diff 11/12/2019 [facility] White Blood 11.0 High 3.5-1 DRIVE Count 10^3/uL 0.8 [place] [address] [phone] Red Blood Count 5.00 10^6/uL High 3.70-4.87 Hemoglobin 15.5 g/dL Normal 12.0-16.0 Hematocrit 45 % Normal 35-47 Mean Corpuscular Volume 90 fL Normal 80-97 Mean Corpuscular Hemoglobin 31 pg Normal 27-31 Mean Corpuscular HGB Conc 34 g/dL Normal 31-36 Red Cell Distribution Width 13 % Normal 10-15 Platelet Count 288 10^3/uL Normal 150-450 Mean Platelet Volume 7.6 fL Normal 7.4-10.4 Comp Metabolic 11/12/2019 [facility] Sodium 139 mmol/L Normal 135-[address] [place] [address] [phone] Potassium 4.3 mmol/L Normal 3.5-5.0 Chloride 102 [...] reduce sensitivity of test. Refer to the [facility] Test Catalog for collection information: [email or web address] As with all diagnostic procedures, the laboratory results obtained should be used in conjunction with other clinical information available to the physician, including confirmation by another method, as applicable. 2 Digital Media Manager: [id number] 3 Troponin-I testing on Plasma Separator Tubes (PST) has a known false positive rate of 0.20-0.40%. All positive troponins reflex immediately to secondary confirmatory testing. Using the Monogram DxI 800 Access Immunoassay systems, the 99th percentile [...] [address]: Oneil Schaeffer MD Acct: [id number] Unit: [id number] AGE: 54 Location: OR Re12/28/19 SEX: F Status: DEP [facility] SPEC: [id number] DARIO: 12/28/19- SUBM DR: Oneil Schaeffer MD REQ: [id number] RECD: 12/28/19 STATUS: SONIA TRIMBLE DR: Jimy Turcios MD [...] CONTINUED ON NEXT PAGE DEPARTMENT OF PATHOLOGY, [address] [place] [address] Rishi Gates M.D. Director [facility] # [id number] 2. The specimen is received in formalin labeled, Biopsy [place], and consists of three pang-pink irregular to polypoid soft tissue fragments ranging from 0.2 x 0.1 x 0.1 cm to 0.5 x 0.3 x 0.3 cm, which are entirely submitted in one cassette. Signed by and Reported on: Sheila Guaman MD 12/31/19 1100 END OF REPORT DEPARTMENT OF PATHOLOGY, [address] [place] [address] Rishi Gates M.D. Director [facility] # [id number] 6 SEE RESULT BELOW Name: KATELIN TRIPP : [address]: Oneil Schaeffer MD Acct: [id number] Unit: [id number] AGE: 54 Location: OR Re12/28/19 SEX: F Status: DEP SDC SPEC: [id number] DARIO: 12/28/19-[address]: Oneil Schaeffer MD REQ: [id number] RECD: 12/28/19-851 STATUS: COMP [facility] DR: Doreen Meraz MD _ SOURCE: GAS ANTRUM SPDESC: ORDERED: Clotest Procedure Result Reported Site Clotest Final 12/29/19- 0840 ML Clotest Negative * ML - Main Lab . END OF REPORT DEPARTMENT OF PATHOLOGY, [address] [place] [address] Rishi Gates M.D. Director [facility] # [id number] 7 Because ethnic data is not always [...] dialysis) Procedures Date Code Description Status 12/28/2019 74903 Endoscopy Upper GI Biopsy Completed 03/17/2010 33521217 Colonoscopy Completed 11/24/2004 82597976 Colonoscopy Completed Medical Devices Description No Information Available Encounters Type Date Location Provider Dx Diagnosis Office Visit 02/08/2020 [facility] Internal Medicine Kely Garibay, B02.9 Zoster without 3:40p - Ccmob N.P. complications Office Visit 01/25/2020 [facility] Internal Medicine Brian Rey NP J18.9 Pneumonia, 2:20p - Ccmob unspecified organism Office Visit 11/12/2019 [facility] Gastroenterology Tati Z01.818 Encounter for 1:00p Sheila Cano NP preprocedural examination K21.9 Gastro-esophageal reflux disease without esophagitis Z68.43 Body mass index (BMI) 50.0-59.9, adult Office Visit 09/27/2019 11:40a [facility] Internal Brian Rey, E03.9 Hypothyroidism, Medicine - [employer] unspecified Ccmob Z68.43 Body mass index (BMI) 50.0-59.9, adult Assessments Date Code Description Provider 02/08/2020 B02.9 Zoster without complications Kely Garibay, N.P. 01/25/2020 J18.9 Pneumonia, unspecified organism Brian Rey [...] Brian Rey NP Plan of Treatment Future Appointment(s):03/17/2020 8:40 am - Tati Cano NP at [facility] Liaqmgtuynjbcdyq65/31/2020 1:20 pm - Tonny Zelaya M.D. at [place] Ahcgikykkm76/13/2020 - Kely Garibay N.DorisB02.9 Zoster without complicationsNew Medication:Valacyclovir HCL 1 gm - one by mouth three times a day x 7 daysComments:You have shingles.I have sent in a prescription for Valacyclovir 1 Gm. Take 1 tablet, 3 times daily,for 7 days.For the pain I suggest you start taking your Gabapentin.I also suggest you take Acetaminophen as needed for pain. Functional Status Description No Information Available Mental Status Description No Information Available Referrals Description No Information Available
--- OUTSIDE RECORDS SUMMARY | 2020-02-12 20:11 | XMS REPORT | Continuity of Care Document ---
:1965 External Reference #:[id number] Author Name Brian Rey NP (transmitted by agent of provider Elyse Hernandez) Address [address] [facility], [place] [address] Care Team Providers Name Role Phone Yoni Vivar MD - Family Medicine Care Team Information Sap Developer Doreen Meraz M.D. - Family Medicine Care Team Information Sap Developer [phone] Problems Active Problems Provider Date Pulmonary valve [...] Medications SIG Qnty Indications Ordering Date Provider Venlafaxine HCL ER 1 tab by mouth [...] Unknown 100mg Capsules Ipratropium Inhale Contents Unknown [place]/Albuterol Of 1 Vial In Sulfate Nebulizer Every [...] 50mcg/Act nostril once Cotton, M.D. Suspension daily History Medications Prednisone 2 tab [...] Range Note Influenza A & B 01/22/2020 [facility] Flu AB (SEE NOTE) [address] [place] [address] [phone] Influenza A Molecular Negative Negative Influenza B Molecular Negative Negative 2 CBC Auto 01/22/2020 [facility] White Blood 6.7 10^3/uL Normal 3.5-10.[address] [place] [address] [phone] Red Blood Count 4.76 10^6/uL Normal 3.70-4.87 [...] Blood Cells % 0.0 Laboratory test 01/22/2020 [facility] Troponin-I 0.00 <0.03 [address] (TnI) ng/mL [place], [place] [address] [phone] Comp Metabolic 01/22/2020 [facility] Sodium 136 Normal 135- [address] mmol/L [place], [place] [address] [phone] Chloride 102 mmol/L Normal 101-111 Co2 Carbon [...] 15 U/L Normal 13-39 Laboratory test 01/22/2020 [facility] C Reactive 22.72 mg/L High <8.[address] [place] [address] [phone] Surgical 12/28/2019 [facility] Surgical SEE RESULT [address] [place] [address] [phone] PDFReport SEE IMAGE Laboratory test 12/28/2019 [facility] Clotest SEE RESULT [address] [place] [address] [phone] Laboratory test 11/12/2019 [facility] TSH (Thyroid 5.18 Normal 0.34- finding [address] Stim Horm) mcIU/mL 5.60 [place] [address] [phone] CBC No Diff 11/12/2019 [facility] White Blood 11.0 High 3.5-1 DRIVE Count 10^3/uL 0.8 [place] [address] [phone] Red Blood Count 5.00 10^6/uL High 3.70-4.87 Hemoglobin 15.5 g/dL Normal 12.0-16.0 Hematocrit 45 % Normal 35-47 Mean Corpuscular Volume 90 fL Normal 80-97 Mean Corpuscular Hemoglobin 31 pg Normal 27-31 Mean Corpuscular HGB Conc 34 g/dL Normal 31-36 Red Cell Distribution Width 13 % Normal 10-15 Platelet Count 288 10^3/uL Normal 150-450 Mean Platelet Volume 7.6 fL Normal 7.4-10.4 Comp Metabolic 11/12/2019 [facility] Sodium 139 mmol/L Normal 135-[address] [place] [address] [phone] Potassium 4.3 mmol/L Normal 3.5-5.0 Chloride 102 [...] reduce sensitivity of test. Refer to the [facility] ([facility] Lab Test Catalog for collection information: [email or web address] As with all diagnostic procedures, the laboratory results obtained should be used in conjunction with other clinical information available to the physician, including confirmation by another method, as applicable. 2 Post Production Assistant: [id number] 3 Troponin-I testing on Plasma Separator Tubes (PST) has a known false positive rate of 0.20-0.40%. All positive troponins reflex immediately to secondary confirmatory testing. Using the Adstrix DxI 800 Access Immunoassay systems, the 99th [...] (or dialysis) 5 SEE RESULT BELOW Name: QASIMKATELIN : [address]: Oneil Schaeffer MD Acct: [id number] Unit: [id number] AGE: 54 Location: OR Re12/28/19 SEX: F Status: [place] [facility] SPEC: [id number] DARIO: 12/28/19- SUBM DR: Oneil Schaeffer MD REQ: [id number] RECD: 12/28/193955 STATUS: SONIA TRIMBLE DR: Jimy Turcios MD [...] CONTINUED ON NEXT PAGE DEPARTMENT OF PATHOLOGY, [address] [place] [address] Rishi Gates M.D. Director [facility] # [id number] 2. The specimen is received in formalin labeled, Biopsy [place], and consists of three pang-pink irregular to polypoid soft tissue fragments ranging from 0.2 x 0.1 x 0.1 cm to 0.5 x 0.3 x 0.3 cm, which are entirely submitted in one cassette. Signed by and Reported on: Sheila Guaman MD 12/31/19 1100 END OF REPORT DEPARTMENT OF PATHOLOGY, [address] [place] [address] Rishi Gates M.D. Director [facility] # [id number] 6 SEE RESULT BELOW Name: KATELIN TRIPP : [address]: Oneil Schaeffer MD Acct: [id number] Unit: [id number] AGE: 54 Location: OR Re12/28/19 SEX: F Status: DEP SDC SPEC: [id number] DARIO: 12/28/19-[address] [facility] [address]: Oneil Schaeffer MD REQ: [id number] RECD: 12/28/19-1504 STATUS: COMP [facility] DR: Doreen Meraz MD _ SOURCE: GAS ANTRUM SPDESC: ORDERED: Clotest Procedure Result Reported Site Clotest Final 12/29/19- 0840 ML Clotest Negative * ML - Main Lab . END OF REPORT DEPARTMENT OF PATHOLOGY, [address] [place] [address] Rishi Gates M.D. Director [facility] # [id number] 7 Because ethnic data is not always [...] dialysis) Procedures Date Code Description Status 12/28/2019 78791 Endoscopy Upper GI Biopsy Completed 03/17/2010 82814613 Colonoscopy Completed 11/24/2004 44840717 Colonoscopy Completed Medical Devices Description No Information Available Encounters Type Date Location Provider Dx Diagnosis Office Visit 01/25/2020 [facility] Internal Medicine Brian Rey NP J18.9 Pneumonia, 2:20p - Ccmob unspecified organism Office Visit 11/12/2019 [facility] Gastroenterology Tati Z01.818 Encounter for 1:00p Sheila Cano NP preprocedural examination K21.9 Gastro-esophageal reflux disease without esophagitis Z68.43 Body mass index (BMI) 50.0-59.9, adult Office Visit 09/27/2019 11:40a [facility] Internal Brian Rey, E03.9 Hypothyroidism, Medicine - [employer] unspecified Ccmob Z68.43 Body mass index (BMI) [...] Body mass index (BMI) 50.0-59.9, adult Tati Cnao NP 09/27/2019 E03.9 Hypothyroidism, unspecified Brian Rey NP 09/27/2019 Z68.43 Body mass index (BMI) 50.0-59.9, adult Brian Rey NP Plan of Treatment Future Appointment(s):02/11/2020 8:10 am - Tati Cano NP at [facility] Bgeoncerysneixop32/16/2020 11:20 am - Tonny Zelaya M.D. at [place] Ibflfxkwcq98/28/2020 - Brian Rey, DARLYNJ18.9 Pneumonia, unspecified organismNew Medication:Prednisone 20 mg - [...]
--- NOTE | 2020-02-12 20:43 | UC ---
Skin Complaint HPI - HPI Summary HPI Summary: 54 yo female presents with left flank pain. She tells me that she developed LEFT flank pain on 02/07 and saw her PCP who diagnosed her with shingles and placed her on valacylovir and gabapentin. She is here today with increased pain over the last 3 hours. She has not noticed any rash. She has no hx of kidney stone. She states the gabapentin helps a little. Describes the pain as a burning on 02/07 and sometimes today, but has become more spasmatic today. She also mentions that she had pneumonia about 2.5 weeks ago and was treated and is feeling better from this. Denies fever, chills, SOB, chest pain, abdominal pain , n/v/d/c, dysuria, hematuria. Last BM was today and normal for her. - History of Current Complaint Time Seen by Provider: 02/12/20 20:40 Stated Complaint: LOW SIDE AND BACK PAIN Hx Obtained From: Patient Onset/Duration: Gradual Onset Onset Severity: Mild Current Severity: Moderate Pain Intensity: 7 Pain Scale Used: 0-10 Numeric - Allergy/Home Medications Allergies/Adverse Reactions: Allergies Allergy/AdvReac Type Severity Reaction Status Date / Time Latex, Natural Rubber Allergy Intermediate Rash And Verified 02/12/20 21:11 Itching Sulfa (Sulfonamide Allergy Intermediate Difficulty Verified 02/12/20 21:11 Antibiotics) Breathing nickel Allergy Mild Rash Verified 02/12/20 21:11 peanut Allergy Mild Itching Verified 02/12/20 21:11 banana Allergy See Comment Verified 02/12/20 21:11 Egg Derived Allergy See Comment Verified 02/12/20 21:11 Home Medications: Home Medications Potassium Chlor TAB* [Klor-Con M20 ER TAB*] 20 meq PO DAILY 01/10/13 [History Confirmed 02/12/20] Spironolactone [Aldactone] 25 mg PO DAILY 03/29/15 [History Confirmed 02/12/20] ARIPiprazole TAB* [Abilify TAB*] 10 mg PO DAILY 11/14/19 [History Confirmed ] Aspirin 81 mg CHEW TAB* [Aspirin Low Dose TAB*] 81 mg PO DAILY 11/14/19 [ History Confirmed 02/12/20] Fexofenadine (NF) [Jenna 180 (NF)] 180 mg PO DAILY PRN 11/14/19 [History Confirmed 02/12/20] Gabapentin CAP(*) [Neurontin 100 mg CAP(*)] 100 - 200 mg PO TID PRN 11/14/19 [ History Confirmed 02/12/20] Levothyroxine TAB* [Synthroid TAB*] 50 mcg PO DAILY 11/14/19 [History Confirmed 02/12/20] Mometasone NASAL (NF) [Nasonex (NF)] 50 mcg BOTH NARES DAILY PRN 11/14/19 [ History Confirmed 02/12/20] Venlafaxine EXT RELEASE CAP* [Effexor Xr CAP*] 75 mg PO DAILY 11/14/19 [History Confirmed 02/12/20] Acetaminophen [Tylenol Extra Strength] 1,000 mg PO TID PRN 01/22/20 [History Confirmed 01/22/20] Albuterol/Ipratropium NEB.DUNCAN* [Duoneb (Albuterol 2.5 MG/Ipratropium 0.5 MG)] 1 neb INH Q6H PRN #30 neb.duncan 01/22/20 [Rx Confirmed 02/12/20] Metoprolol Succinate [Toprol Xl] 25 mg PO BID 01/22/20 [History Confirmed ] Venlafaxine ER (NF) [Effexor ER (NF)] 150 mg PO DAILY 01/22/20 [History Confirmed 02/12/20] PMH/Surg Hx/FS Hx/Imm Hx Endocrine History: Hypothyroidism Cardiovascular History: Hypertension Psychological History: Anxiety, Depression - Surgical History Surgical History: Yes Surgery Procedure, Year, and Place: Cholecystectomy, Open Heart-valve surgery 1972, Tubal Ligation, Hysterectomy - Family History Known Family History: Positive: Cardiac Disease - father, Diabetes - father, Non -Contributory Family History: Mother with hypothyroidism - Social History Occupation: Employed Full-time Lives: With Family Alcohol Use: Rare Substance Use Type: None Smoking Status (MU): Never Smoked Tobacco Have You Smoked in the Last Year: No - Immunization History Most Recent Tetanus Shot: Within 10 years Review of Systems All Other Systems Reviewed And Are Negative: No Constitutional: Positive: Negative Skin: Positive: Negative Respiratory: Positive: Negative Cardiovascular: Positive: Negative Gastrointestinal: Positive: Negative Genitourinary: Positive: Negative Neurovascular: Positive: Negative Musculoskeletal: Positive: Other: - Left flank pain Neurological/Mental Status: Positive: Negative Psychological: Positive: Negative Physical Exam - Summary Physical Exam Summary: Exam limited due to body habitus. GENERAL: NAD. WDWN. SKIN: No rashes, sores, lesions, or open wounds. NECK: Supple. Nontender. No lymphadenopathy. CHEST: CTAB. No r/r/w. No accessory muscle use. Breathing comfortably and in no distress. CV: RRR. Pulses intact. Cap refill <2seconds ABDOMEN: Soft. NTTP. No distention or guarding. No CVA tenderness. Bowel sounds present MSK: LEFT FLANK: Moderate TTP about left posterior-midaxillary flank. Reproducible with truncal twisting and reaching above her head. FROM b/l LEs. NEURO: Alert. PSYCH: Age appropriate behavior. Triage Information Reviewed: Yes Vital Signs: Vital Signs: Temp Pulse Resp BP Pulse Ox 98.5 F 95 18 132/77 95 02/12/20 21:05 02/12/20 21:05 02/12/20 21:05 02/12/20 21:05 02/12/20 21:05 Laboratory Tests 02/12/20 20:57 POC Urine Color Yellow POC Urine Clarity Clear POC Urine pH 6.0 POC Ur Specif [place] 1.025 POC Urine Protein Negative POC Ur Glucose (UA) 1+ A POC Urine Ketones Negative POC Urine Blood Negative POC Urine Nitrite Negative POC Urine Bilirubin Negative POC Urine Urobilinogen 0.2 POC U Leukocyte Esteras Negative Vital Signs Reviewed: Yes Diagnostics - Radiology CT abd/pelv Radiology Interpretation Completed By: Radiologist Summary of Radiographic Findings: IMPRESSION: 1. No CT findings to correlate with patient's symptomatology. Specifically no obstructing renal or ureteral calculi. 2. Mild hepatic steatosis (5-14% fat fraction). Course/Dx - Course Course Of Treatment: UA with 1+ glucose. Pt states that she is "borderline diabetic" and is not being treated. POC glucose 186 today - last ate ice cream 2-3 hours ago. Suspicion for renal calculi vs MSK spasm. In the clinic she was given toradol IM for her pain. CT ab/pelv as above. Pt states toradol did not change her pain. Discussed case with Dr. White. -- LUQ ttp on her exam. Discussed and agreed on recommending ED. Discussed with pt and she will go to the ED as she is in significant discomfort without relief with toradol. Daughter with her will drive her - Diagnoses Provider Diagnosis: Left flank pain Discharge ED - Sign-Out/Discharge Documenting (check all that apply): Patient Departure All imaging exams completed and their final reports reviewed: Yes - Discharge Plan Condition: Stable Disposition: HOME-RECOMMEND TO ED Referrals: Doreen Meraz MD [Primary Care Provider] - Additional Instructions: I recommend that you go to the ER for further evaluation of your left abdominal pain - Billing Disposition and Condition Condition: STABLE Disposition: Home-Recommend to ED
[2020-02-12] MEDS ORDERED: Ketorolac *IM* INJ* 60 MG/2 ML VIAL IM ONE (20:49)
[2020-02-12 21:11] VITALS: BP 132/77
== END 2020-02-12 21:50 | disposition home health service (06) ==
LOC: UCEAST 20:05
DX: R10.9 Unspecified abdominal pain (principal); E03.9 Hypothyroidism, unspecified; I10 Essential (primary) hypertension; F41.8 Other specified anxiety disorders; Z91.040 Latex allergy status; Z88.2 Allergy status to sulfonamides; Z91.013 Allergy to seafood; Z91.010 Allergy to peanuts; Z91.012 Allergy to eggs; Z91.018 Allergy to other foods; Z79.890 Hormone replacement therapy; Z79.899 Other long term (current) drug therapy
CPT/HCPCS: 74176; 81003; 99212; G0463; J1885

== ENCOUNTER 2020-02-12 22:32 | Emergency (ER) | payer BC ==
[2020-02-12] MEDS ORDERED: oxyCODONE/Acetamin 5/325 MG* TAB PO ONE (23:02)
[2020-02-12] MEDS ORDERED: Gabapentin CAP(*) 100 MG PO ONE (23:03)
--- NOTE | 2020-02-12 23:03 | ED ---
Complex/Multi-Sys Presentation - HPI Summary HPI Summary: Patient is a 54 y/o F presenting to [facility] with complaints of lower left flank pain for the past several days. She characterizes the pain as a burning sensation that onset on 02/08/20 and worsened 02/10/20. She was evaluated by FURNACE CH[employer]ING MACHINE OPERATOR who told the patient that she had shingles and was placed on valacylovir. The patient states that she had not experienced any relief in her Sx with this medication. Pain worsened this evening. She states that the pain is constant but waxes and wanes in its intensity. Patient reports that the pain at its worst is spasmodic and deep. Patient went to this evening, 02/12/20, provider who evaluated the patient did not see signs of shingles. CT abd/pel was done and resulted negative. Patient was given toradol at and sent to ED for further workup. She denies N/V, fever, urinary Sx. Patient does note that she had PNA two weeks ago. PMHx of fibromyalgia, patient is on gabapentin. Home medications and allergies are reviewed. - History Of Current Complaint Chief Complaint: EDFlankPain Time Seen by Provider: 02/12/20 22:47 Hx Obtained From: Patient Onset/Duration: Lasting Days, Still Present Timing: Constant, Days Severity Currently: Severe Severity Initially: Moderate Location: Pain At: - LEFT FLANK Associated Signs And Symptoms: Positive: Other - positive - left flank pain; negative - urinary Sx. Negative: Nausea, Vomiting, Fever - Allergies/Home Medications Allergies/Adverse Reactions: Allergies Allergy/AdvReac Type Severity Reaction Status Date / Time Latex, Natural Rubber Allergy Intermediate Rash And Verified 02/12/20 22:38 Itching Sulfa (Sulfonamide Allergy Intermediate Difficulty Verified 02/12/20 22:38 Antibiotics) Breathing nickel Allergy Mild Rash Verified 02/12/20 22:38 peanut Allergy Mild Itching Verified 02/12/20 22:38 banana Allergy See Comment Verified 02/12/20 22:38 Egg Derived Allergy See Comment Verified 02/12/20 22:38 Home Medications: Home Medications Potassium Chlor TAB* [Klor-Con M20 ER TAB*] 20 meq PO DAILY 01/10/13 [History Confirmed 02/12/20] Spironolactone [Aldactone] 25 mg PO DAILY 03/29/15 [History Confirmed 02/12/20] ARIPiprazole TAB* [Abilify TAB*] 10 mg PO DAILY 11/14/19 [History Confirmed ] Aspirin 81 mg CHEW TAB* [Aspirin Low Dose TAB*] 81 mg PO DAILY 11/14/19 [ History Confirmed 02/12/20] Fexofenadine (NF) [Jenna 180 (NF)] 180 mg PO DAILY PRN 11/14/19 [History Confirmed 02/12/20] Gabapentin CAP(*) [Neurontin 100 mg CAP(*)] 100 - 200 mg PO TID PRN 11/14/19 [ History Confirmed 02/12/20] Levothyroxine TAB* [Synthroid TAB*] 50 mcg PO DAILY 11/14/19 [History Confirmed 02/12/20] Mometasone NASAL (NF) [Nasonex (NF)] 50 mcg BOTH NARES DAILY PRN 11/14/19 [ History Confirmed 02/12/20] Venlafaxine EXT RELEASE CAP* [Effexor Xr CAP*] 75 mg PO DAILY 11/14/19 [History Confirmed 02/12/20] Acetaminophen [Tylenol Extra Strength] 1,000 mg PO TID PRN 01/22/20 [History Confirmed 01/22/20] Albuterol/Ipratropium NEB.DUNCAN* [Duoneb (Albuterol 2.5 MG/Ipratropium 0.5 MG)] 1 neb INH Q6H PRN #30 neb.duncan 01/22/20 [Rx Confirmed 02/12/20] Metoprolol Succinate [Toprol Xl] 25 mg PO BID 01/22/20 [History Confirmed ] Venlafaxine ER (NF) [Effexor ER (NF)] 150 mg PO DAILY 01/22/20 [History Confirmed 02/12/20] oxyCODONE/Acetamin 5/325 MG* [Percocet 5/325 TAB*] 2 tab PO Q4H PRN #20 tab MDD 6 02/12/20 [Rx] PMH/Surg Hx/FS Hx/Imm Hx Endocrine/Hematology History: Reports: Hx Thyroid Disease - hypothyroidism, Hx Anemia - 30 years ago Denies: Hx Bone Marrow Disease, Hx Diabetes, Hx Sickle Cell Disease Cardiovascular History: Reports: Hx Angina, Hx Hypertension, Hx Valvular Heart Disease - bicuspid aortic vavle (mild-mod), Other Cardiovascular Problems/ Disorders - THORACIC AORTIC ANUERISM Denies: Hx Cardiomegaly, Hx Congestive Heart Failure, Hx Coronary Artery Disease, Hx Pacemaker/ICD, Hx Peripheral Vascular Disease, Hx Rheumatic Fever Respiratory History: Reports: Hx Asthma, Hx Seasonal Allergies - multiple, Hx Sleep Apnea - can't tolerate cpap, Other Respiratory Problems/Disorders - age 8 pulmonic stenosis- valve valvotomy Denies: Hx Chronic Obstructive Pulmonary Disease (COPD), Hx Pulmonary Edema, Hx Pulmonary Embolism GI History: Reports: Hx Gall Bladder Disease - s/p lap jose, Hx Gastroesophageal Reflux Disease, Hx Hiatal Hernia, Hx Irritable Bowel Denies: Hx Cirrhosis, Hx Crohn's Disease, Hx Jaundice, Hx Ulcer Comment Only: Other GI Disorders - ibs History: Denies: Hx Kidney Infection, Hx Kidney Stones, Other Problems/Disorders Musculoskeletal History: Reports: Hx Arthritis - osteoarthritis, Hx Fibromyalgia , Hx Orthopedic Injury - bilateral knees Denies: Hx Bursitis, Hx Tendonitis, Other Musculoskeletal History Sensory History: Reports: Hx Contacts or Glasses Denies: Hx Cataracts, Hx Glaucoma, Hx Hearing Aid Opthamlomology History: Reports: Hx Contacts or Glasses Denies: Hx Cataracts, Hx Glaucoma Neurological History: Reports: Hx Migraine - has had a few, but not within the past 5 years Denies: Hx Headaches, Hx Nerve Disease, Hx Seizures, Other Neuro Impairments/ Disorders Psychiatric History: Reports: Hx Anxiety, Hx Depression, Hx Post Traumatic Stress Disorder - Cancer History Hx Chemotherapy: No Hx Radiation Therapy: No - Surgical History Surgery Procedure, Year, and Place: Cholecystectomy, Open Heart-valve surgery 1972, Tubal Ligation, Hysterectomy Hx Anesthesia Reactions: Yes Infectious Disease History: No Infectious Disease History: Denies: Hx Hepatitis, Traveled Outside the [place] in Last 30 Days - Family History Known Family History: Positive: Cardiac Disease - father, Diabetes - father Family History: Mother with hypothyroidism - Social History Alcohol Use: Rare Substance Use Type: Reports: None Smoking Status (MU): Never Smoked Tobacco Have You Smoked in the Last Year: No Review of Systems Negative: Fever Negative: Vomiting, Nausea Positive: no symptoms reported - urinary Sx , flank pain - left flank All Other Systems Reviewed And Are Negative: Yes Physical Exam - Summary Physical Exam Summary: Appearance: Well-appearing, middle-aged, obese, and in no acute distress Skin: Warm, dry, no obvious rash; The area of pain has no rash, vesicular or otherwise. Eyes: sclera anicteric, no conjunctival pallor HENT: mucous membranes moist, pharynx appears normal Neck: Supple, nontender Respiratory: Clear to auscultation, no signs of respiratory distress Cardiovascular: Normal S1, S2. No murmurs. Normal distal pulses in tibial and radial bilaterally. Abdomen: Soft, nontender, normal active bowel sounds present Musculoskeletal: Normal, Strength/ROM Intact Neurological: A&Ox3, awake and alert, mentation is normal, speech is fluent and appropriate Psychiatric: affect is normal, does not appear anxious or depressed Triage Information Reviewed: Yes Vital Signs On Initial Exam: Initial Vitals Temp Pulse Resp BP Pulse Ox 96.9 F 89 18 139/97 95 02/12/20 22:33 02/12/20 22:33 02/12/20 22:33 02/12/20 22:33 02/12/20 22:33 Vital Signs Reviewed: Yes Procedures - Sedation Patient Received Moderate/Deep Sedation with Procedure: No Diagnostics - Vital Signs Vital Signs Temp Pulse Resp BP Pulse Ox 02/12/20 22:33 96.9 F 89 18 139/97 95 - Laboratory Result Diagrams: 02/12/20 23:08 02/12/20 23:08 Lab Statement: Any lab studies that have been ordered have been reviewed, and results considered in the medical decision making process. Complex Multi-Symp Course/Dx Course Of Treatment: Patient is a 54 y/o F presenting to [facility] with complaints of lower left flank pain for the past several days. She characterizes the pain as a burning sensation that onset on 02/08/20 and worsened 02/10/20. She was evaluated by FURNACE CHARGING MACHINE OPERATOR who told the patient that she had shingles and was placed on valacylovir. The patient states that she had not experienced any relief in her Sx with this medication. Pain worsened this evening. She states that the pain is constant but waxes and wanes in its intensity. Patient reports that the pain at its worst is spasmodic and deep. Patient went to this evening, 02/12/20, provider who evaluated the patient did not see signs of shingles. CT abd/pel was done and resulted negative. Patient was given toradol at and sent to ED for further workup. She denies N/V, fever, urinary Sx. Patient does note that she had PNA two weeks ago. PMHx of fibromyalgia, patient is on gabapentin. On physical exam, patient is noted to be middle-aged, obese, and in no acute distress. The area of pain has no rash, vesicular or otherwise. Bloodwork was obtained and within normal limits with exception of MCH 32, MPV 7.3, sodium 134 , BUN/creatinine ratio 28.2, glucose 199, CRP 12.16. During ED course patient received Percocet 5/325 tab x2 and gabapentin 200 mg PO. Patient was discharged to home with PCP followup in 1 week. - Diagnoses Differential Diagnoses/HQI/PQRI: Other - shingles Provider Diagnoses: Left flank pain Discharge ED - Sign-Out/Discharge Documenting (check all that apply): Patient Departure - discharge - Discharge Plan Condition: Stable Disposition: HOME Prescriptions: oxyCODONE/Acetamin 5/325 MG* [Percocet 5/325 TAB*] 2 tab PO Q4H PRN #20 tab MDD 6 PRN Reason: Pain - Severe Patient Education Materials: Shingles (ED) Forms: *Work Release Referrals: Doreen Meraz MD [Primary Care Provider] - 1 Week (if not improving) Additional Instructions: The routine blood work we did today was unremarkable. With a normal urinalysis and normal CT scan of the abdomen/pelvis, we have ruled out just about all the serious causes of your pain, such as kidney stones or infections, infections involving the bowels, or other serious intra-abdominal conditions. Based on the location, severity and quality of your pain I think shingles is a very likely culprit here, although without a rash it is difficult to be certain. For now I would recommend more aggressive pain control with an opioid; I have sent a prescription for percocet to your pharmacy. Finish the course of acyclovir. Gabapentin can be a helpful adjunct for shingles pain, so going on that would also be very reasonable. - Billing Disposition and Condition Condition: STABLE Disposition: Home - Attestation Statements Document Initiated by Scribe: Yes Documenting Scribe: DARIANA MANLEY Provider For Whom Jermain is Documenting (Include Credential): OLVIIA LY MD Scribe Attestation: I, DARIANA MANLEY, scribed for OLIVIA LY MD on 02/13/20 at 0609. Scribe Documentation Reviewed: Yes Provider Attestation: The documentation as recorded by the scribe, DARIANA MANLEY accurately reflects the service I personally performed and the decisions made by me, OLIVIA LY MD Status of Jermain Document: Viewed
[2020-02-12 23:18] LABS: ABS Basophils 0.1 10^3/ul (0-0.2); ABS Eosinophils 0.5 10^3/ul (0-0.6); ABS Lymphocytes 1.8 10^3/ul (1.0-4.8); ABS Monocytes 0.8 10^3/ul (0-0.8); ABS Neutrophils 7.2 10^3/ul (1.5-7.7); Eosinophil % 4.7 %; Hematocrit 43 % (35-47); Hemoglobin 14.8 g/dL (12.0-16.0); Lymphocyte % 17.6 %; Mean Corpuscular HGB Conc 34 g/dL (31-36); Mean Corpuscular Hemoglobin 32 pg (27-31); Mean Corpuscular Volume 92 fL (80-97); Mean Platelet Volume 7.3 fL (7.4-10.4); Platelet Count 247 10^3/uL (150-450); Red Blood Count 4.71 10^6 /uL (3.70-4.87); Red Cell Distribution Width 13 % (10-15); White Blood Count 10.5 10^3/uL (3.5-10.8)
[2020-02-12 23:34] LABS: Albumin 3.9 g/dL (3.2-5.2); Albumin/Globulin Ratio 1.4 (1-3); BUN/Creatinine Ratio 28.2 (8-20); C Reactive Protein 12.16 mg/L (<8.01); Calcium 9.4 mg/dL (8.6-10.3); EGFR African American 93.5 (>60); EGFR Non-African American 77.3 (>60); Globulin 2.7 g/dL (2-4); Potassium 4.1 mmol/L (3.5-5.0); Total Bilirubin 0.4 mg/dL (0.2-1.0); Total Protein 6.6 g/dL (6.4-8.9)
[2020-02-12 23:58] VITALS: BP 140/99
== END 2020-02-12 23:57 | disposition home or self-care (01) ==
LOC: ED 22:32
DX: R10.32 Left lower quadrant pain (principal); E03.9 Hypothyroidism, unspecified; I10 Essential (primary) hypertension; F41.9 Anxiety disorder, unspecified; F32.9 Major depressive disorder, single episode, unspecified; Z95.1 Presence of aortocoronary bypass graft; Z90.49 Acquired absence of other specified parts of digestive tract; Z79.82 Long term (current) use of aspirin; Z79.890 Hormone replacement therapy; Z91.012 Allergy to eggs; Z91.040 Latex allergy status; Z91.010 Allergy to peanuts; Z88.2 Allergy status to sulfonamides; Z91.018 Allergy to other foods; Z91.09 Other allergy status, other than to drugs and biological substances; Z90.710 Acquired absence of both cervix and uterus
CPT/HCPCS: 36415; 80053; 85025; 86140; 99282; A9270-GY